=== PATIENT | male | born 1945 | race Caucasian/White ===

== ENCOUNTER → 2016-11-25 | Outpatient (CLI) | payer OTHER ==
[~2016-11-25] MED LIST: AMLODIPINE BESY10 MG PO; ARTHROTEC 751 TABLET PO; ASPIRIN81 M2 PO; BRILINTA90 MG PO; CRESTOR20 MG PO; DAILY MULTIPLE1 EACH PO; DULCOLAX5 MG PO; FENOFIBRATE160 M1 PO; FUROSEMIDE20 MG PO; HYDROCODON-ACE1 EAC7 PO; IRON325 M1 PO; LISINOPRIL-HCT1 EAC3 PO; LISINOPRIL2.5 MG PO; LITE COAT ASPI325 M1 PO; LO-DOSE ASPIRIN81 M1 PO; LOPRESSOR25 MG PO; LOPRESSOR50 MG PO; METOPROLOL TART50 MG PO; OXYCODONE-ACET1 EACH PO; SENNA-TIME S T1 EACH PO; SPIRONOLACTONE25 MG PO; TYLENOL EXTRA500 MG PO; WELCHOL3.75 GM PO
== END | disposition home or self-care (01) ==
DX: M17.12 Unilateral primary osteoarthritis, left knee (principal); R26.2 Difficulty in walking, not elsewhere classified; M25.562 Pain in left knee; M25.662 Stiffness of left knee, not elsewhere classified; M62.81 Muscle weakness (generalized)
CPT/HCPCS: 97110 GP; 97150 GO; 97161 GP; 97165 GO; G8978 GP; G8979 GP; G8980 GP; G8987 GO; G8988 GO; G8989 GO

== ENCOUNTER 2016-12-22 22:05 | Inpatient (IN) | payer OTHER ==
[~2016-12-22] VITALS: Ht 182.9 cm; Wt 97.5 kg
[~2016-12-22 22:05] MED LIST changes: +CO Q-10100 MG PO; +PRINIVIL10 MG PO
[2016-12-23 06:12] VITALS: BP 153/72
[2016-12-23 10:14] LABS: HEMATOCRIT 40.6 % (38.0-50.0); MCH 29.5 PG (29.0-34.0); MCV 92.1 FL (86-99); MEAN PLAT.VOLUME 9.7 uM^3 (9.0-12.4); PLATELET COUNT 161 K/uL (156-360); RBC DIS.WIDTH-CV 12.4 % (11.8-14.6); RBC DIS.WIDTH-SD 42.5 % (39-53); RED BLOOD COUNT 4.41 M/uL (4.00-5.50); WHITE BLOOD COUNT 6.7 K/uL (4.1-10.2)
[2016-12-23 11:45] VITALS: BP 138/72
[2016-12-23 16:30] VITALS: BP 145/71
[2016-12-23 20:07] VITALS: BP 141/70
[2016-12-23 23:51] VITALS: BP 156/78
[2016-12-24 03:55] VITALS: BP 161/92
[2016-12-24 07:25] LABS: HEMATOCRIT 39.2 % (38.0-50.0)
[2016-12-24 07:51] LABS: ANION GAP 7 MEQ/L (2-14); CHLORIDE 101 MEQ/L (99-109); GFR ESTIMATE (CALCULATED) > 59 mL/min/; GLUCOSE 128 mg/dL (70-99); POTASSIUM 3.8 MEQ/L (3.7-5.4); SAMPLE HEMOLYSIS CHECK 0; SAMPLE ICTERIC CHECK 0; SAMPLE LIPEMIA CHECK 0; SODIUM 137 MEQ/L (136-147); UREA NITROGEN (BUN) 13 mg/dL (9-23)
[2016-12-24 08:20] VITALS: BP 141/59
[2016-12-24 15:55] VITALS: BP 119/56
[2016-12-24 23:44] VITALS: BP 115/63
[2016-12-25 06:48] LABS: HEMATOCRIT 36.3 % (38.0-50.0); MCV 90.8 FL (86-99)
[2016-12-25 07:58] VITALS: BP 119/69
[2016-12-25] MEDS ORDERED: LOVENOX40 MG/0.4 SC (08:45)
[2016-12-25] MEDS ORDERED: DOCUSATE SODIU100 MG PO (08:45)
[2016-12-25] MEDS ORDERED: ENDOCET 5-3251 EACH PO (08:45)
== END 2016-12-25 15:21 | DRG 470 ==
LOC: ENRESERV 22:05 → 2SOUTH 12-23 05:21 → ENRESERV 12-23 10:22 → 3EAST 12-23 11:37 → 2SOUTH 12-23 13:19 → 3EAST 12-25 15:21
PROVIDERS: Orthopaedic Surgery
PROC: 0SRD0J9 Replacement of Left Knee Joint with Synthetic Substitute, Cemented, Open Approach (ICD-10-PCS; principal; 2016-12-23)
DX: M17.12 Unilateral primary osteoarthritis, left knee (principal); M21.169 Varus deformity, not elsewhere classified, unspecified knee; I10 Essential (primary) hypertension; I25.10 Atherosclerotic heart disease of native coronary artery without angina pectoris; E78.5 Hyperlipidemia, unspecified; Z96.651 Presence of right artificial knee joint; Z96.611 Presence of right artificial shoulder joint; Z87.891 Personal history of nicotine dependence; I25.2 Old myocardial infarction; Z95.5 Presence of coronary angioplasty implant and graft; Z79.82 Long term (current) use of aspirin
CPT/HCPCS: 73560; 80048; 85014; 85018; 85027; 94799; 97530 GP; C1713; J0690; J1170; J1650; J2250; J2405; J3010; J7050

== ENCOUNTER 2016-12-28 11:33 | Emergency (ER) | payer OTHER ==
[~2016-12-28] VITALS: Ht 182.9 cm; Wt 90.1 kg
[~2016-12-28 11:33] MED LIST changes: +DOCUSATE SODIU100 MG PO; +ENDOCET 5-3251 EACH PO; +LOVENOX40 MG/0.4 SC
[2016-12-28 12:56] LABS: EOSINOPHIL (%) 0.1 % (0-5); HEMATOCRIT 35.7 % (38.0-50.0); IMMATURE GRANULOCYTE (%) 0.8 % (0.0-0.7); IMMATURE GRANULOCYTE COUNT 0.1 K/uL; INSTRUMENT ABS NEUTROPHIL CT 11.9 K/uL; LYMPHOCYTE COUNT 0.5 K/uL (1.0-2.8); MCH 29.8 PG (29.0-34.0); MCHC 33.3 G/DL (30.0-36.0); MCV 89.3 FL (86-99); MEAN PLAT.VOLUME 9.5 uM^3 (9.0-12.4); MONOCYTE (%) 9.7 % (3-12); MONOCYTE COUNT 1.3 K/uL (0-0.8); NEUTROPHIL (%) 85.6 % (45-76); NEUTROPHIL COUNT 11.9 K/uL (1.8-6.4); RBC DIS.WIDTH-CV 12.2 % (11.8-14.6); RBC DIS.WIDTH-SD 40.3 % (39-53); WHITE BLOOD COUNT 13.8 K/uL (4.1-10.2)
[2016-12-28 13:01] LABS: PLATELET COUNT 252 K/uL (156-360)
[2016-12-28 13:04] LABS: CHLORIDE 101 mEq/L (99-109); SODIUM 140 mEq/L (136-147)
[2016-12-28 13:05] LABS: GLUCOSE 103 mg/dL (70-99)
[2016-12-28 13:07] LABS: ANION GAP 10 MEQ/L (2-14)
[2016-12-28 13:09] LABS: GFR ESTIMATE (CALCULATED) > 59 mL/min/
[2016-12-28 13:10] LABS: UREA NITROGEN (BUN) 20 mg/dL (9-23)
[2016-12-28 14:59] VITALS: BP 131/70
[2016-12-28] MEDS ORDERED: KEFLEX500 MG PO (15:10)
== END 2016-12-28 15:19 | disposition home or self-care (01) ==
LOC: EME 11:33
DX: M96.840 Postprocedural hematoma of a musculoskeletal structure following a musculoskeletal system procedure (principal); Z96.652 Presence of left artificial knee joint; Z98.890 Other specified postprocedural states; I10 Essential (primary) hypertension; Z96.611 Presence of right artificial shoulder joint; Z95.5 Presence of coronary angioplasty implant and graft; Z87.891 Personal history of nicotine dependence
CPT/HCPCS: 80048; 83605; 85025; 93971; 99281; 99284

== ENCOUNTER 2016-12-29 15:39 | Emergency (ER) | payer OTHER ==
[~2016-12-29] VITALS: Ht 182.9 cm; Wt 91.1 kg
[~2016-12-29 15:39] MED LIST changes: +KEFLEX500 MG PO
[2016-12-29 17:05] VITALS: BP 143/91
== END 2016-12-29 17:05 | disposition home or self-care (01) ==
LOC: EME 15:39
DX: Z48.01 Encounter for change or removal of surgical wound dressing (principal); L76.32 Postprocedural hematoma of skin and subcutaneous tissue following other procedure; Z96.652 Presence of left artificial knee joint; Z98.890 Other specified postprocedural states; E78.00 Pure hypercholesterolemia, unspecified; Z95.5 Presence of coronary angioplasty implant and graft; Z87.891 Personal history of nicotine dependence
CPT/HCPCS: 99281; 99284

== ENCOUNTER 2017-09-27 10:13 | Emergency (ER) | payer OTHER ==
[~2017-09-27] VITALS: Ht 182.9 cm; Wt 88.9 kg
[2017-09-27] MEDS ORDERED: VALIUM5 MG PO (12:44)
[2017-09-27] MEDS ORDERED: NAPROSYN500 MG PO (12:44)
[2017-09-27] MEDS ORDERED: MEDROL DOSEPAK4 MG PO (12:54)
[2017-09-27 13:00] VITALS: BP 141/88
== END 2017-09-27 13:01 | disposition home or self-care (01) ==
LOC: EME 10:13
DX: S39.012A Strain of muscle, fascia and tendon of lower back, initial encounter (principal); M62.838 Other muscle spasm; G89.29 Other chronic pain; I10 Essential (primary) hypertension; I25.2 Old myocardial infarction; Z87.442 Personal history of urinary calculi; Z87.891 Personal history of nicotine dependence; M43.16 Spondylolisthesis, lumbar region; M48.061 Spinal stenosis, lumbar region without neurogenic claudication
CPT/HCPCS: 72131; 99281; 99283

== ENCOUNTER 2017-10-06 18:16 | Observation (INO) | payer OTHER ==
[~2017-10-06] VITALS: Ht 182.9 cm; Wt 87.7 kg
[~2017-10-06 18:16] MED LIST changes: +MEDROL DOSEPAK4 MG PO; +NAPROSYN500 MG PO; +VALIUM5 MG PO
[2017-10-06 19:25] LABS: HEMATOCRIT 47.7 % (38.0-50.0); MCH 30.5 PG (29.0-34.0); MCHC 33.5 G/DL (30.0-36.0); PLATELET COUNT 262 K/uL (156-360); RBC DIS.WIDTH-CV 12.6 % (11.8-14.6); RBC DIS.WIDTH-SD 41.8 % (39-53); RED BLOOD COUNT 5.24 M/uL (4.00-5.50); WHITE BLOOD COUNT 11.6 K/uL (4.1-10.2)
[2017-10-06 19:39] LABS: CHLORIDE 104 mEq/L (99-109); POTASSIUM 4.1 mEq/L (3.7-5.4); SODIUM 145 mEq/L (136-147)
[2017-10-06 19:41] LABS: GLUCOSE 96 mg/dL (70-99); TOTAL PROTEIN 6.7 g/dL (6.4-8.3)
[2017-10-06 19:43] LABS: TOTAL BILIRUBIN 0.9 mg/dL (0.0-1.0)
[2017-10-06 19:45] LABS: ALKALINE PHOSPHATASE 96 IU/L (3-129); GFR ESTIMATE (CALCULATED) > 59 mL/min/ (58.99-99999)
[2017-10-06 19:46] LABS: UREA NITROGEN (BUN) 20 mg/dL (9-23)
[2017-10-06 19:47] LABS: AST (GOT) 20 IU/L (2-34)
[2017-10-06 19:48] LABS: ALT (GPT) 49 IU/L (3-49)
[2017-10-06 19:49] LABS: TROP-I INTERPRETATION NEGATIVE; TROPONIN-I 0.02 ng/mL (0.0-0.30)
[2017-10-06] MEDS ORDERED: LO-DOSE ASPIRIN81 M2 PO (20:24)
[2017-10-06] MEDS ORDERED: ONE DAILY MULT1 EACH PO (20:24)
[2017-10-06 23:17] VITALS: BP 158/70
[2017-10-07 01:21] LABS: TROP-I INTERPRETATION NEGATIVE; TROPONIN-I 0.23 ng/mL (0.0-0.30)
[2017-10-07 01:49] LABS: HDL CHOLESTEROL 32 MG/DL (Desirable>=40); LDL CHOLESTEROL 50 mg/dL (Desirable<100); NON-HDL CHOLESTEROL 65 mg/dL (Desirable<160); TOTAL CHOLESTEROL 97 mg/dL (Desirable<200); TRIGLYCERIDES 75 MG/DL (Normal: <150)
[2017-10-07 04:11] VITALS: BP 128/73
[2017-10-07 07:00] LABS: TROP-I INTERPRETATION INDETERMINATE; TROPONIN-I 0.39 ng/mL (0.0-0.30)
[2017-10-07 07:15] VITALS: BP 143/89
[2017-10-07 11:43] VITALS: BP 140/81
[2017-10-07 12:50] LABS: INTER. NORMALIZED RATIO 1.2
[2017-10-07 12:53] LABS: PTT 33.2 SEC (25-37)
[2017-10-07 20:45] VITALS: BP 134/85
[2017-10-08 00:11] VITALS: BP 128/76
[2017-10-08 04:02] VITALS: BP 135/73
[2017-10-08 06:53] VITALS: BP 156/86
[2017-10-08 08:44] LABS: HEMATOCRIT 47.6 % (38.0-50.0); HEMOGLOBIN 15.5 G/DL (12.5-16.6); MCH 29.9 PG (29.0-34.0); MCHC 32.6 G/DL (30.0-36.0); MCV 91.9 FL (86-99); PLATELET COUNT 198 K/uL (156-360); RBC DIS.WIDTH-CV 12.9 % (11.8-14.6); RBC DIS.WIDTH-SD 43.6 % (39-53); RED BLOOD COUNT 5.18 M/uL (4.00-5.50); WHITE BLOOD COUNT 9.1 K/uL (4.1-10.2)
[2017-10-08 09:03] LABS: TROP-I INTERPRETATION NEGATIVE
[2017-10-08 09:04] LABS: CHLORIDE 104 MEQ/L (99-109); CREATININE 0.7 MG/DL (0.6-1.3); GFR ESTIMATE (CALCULATED) > 59 mL/min/ (58.99-99999); GLUCOSE 86 mg/dL (70-99); POTASSIUM 4.5 MEQ/L (3.7-5.4); SODIUM 140 MEQ/L (136-147); UREA NITROGEN (BUN) 15 mg/dL (9-23)
[2017-10-08 11:05] VITALS: BP 129/79
[2017-10-08] MEDS ORDERED: LISINOPRIL20 MG PO (11:05)
[2017-10-08] MEDS ORDERED: LISINOPRIL10 MG PO (11:07)
== END 2017-10-08 13:28 | disposition home or self-care (01) ==
LOC: EME 18:16 → 4SOUTH 20:57 → EDOF 20:57 → ENRESERV 21:01 → 4SOUTH 23:09
PROVIDERS: Internal Medicine Cardiovascular Disease; Nurse Practitioner Adult Health; Physician Assistant Medical
DX: I25.110 Atherosclerotic heart disease of native coronary artery with unstable angina pectoris (principal); Z95.5 Presence of coronary angioplasty implant and graft; I25.2 Old myocardial infarction; I25.5 Ischemic cardiomyopathy; Z86.74 Personal history of sudden cardiac arrest; I11.0 Hypertensive heart disease with heart failure; I50.22 Chronic systolic (congestive) heart failure; E78.2 Mixed hyperlipidemia; I47.2 Ventricular tachycardia; I27.20 Pulmonary hypertension, unspecified; I34.0 Nonrheumatic mitral (valve) insufficiency; Z85.828 Personal history of other malignant neoplasm of skin; M48.00 Spinal stenosis, site unspecified; G89.29 Other chronic pain; D72.829 Elevated white blood cell count, unspecified; T38.0X5A Adverse effect of glucocorticoids and synthetic analogues, initial encounter; Z87.442 Personal history of urinary calculi; Z96.653 Presence of artificial knee joint, bilateral; Z96.619 Presence of unspecified artificial shoulder joint; Z87.891 Personal history of nicotine dependence; Z82.49 Family history of ischemic heart disease and other diseases of the circulatory system; Z79.82 Long term (current) use of aspirin; Z88.8 Allergy status to other drugs, medicaments and biological substances
CPT/HCPCS: 71046; 80048; 80053; 80061; 84484; 85027; 85610; 85730; 93005; C1750; C1769; C1887; G0378; J1644; J2250; J3010

== ENCOUNTER → 2017-12-08 | Day surgery (SDC) | payer OTHER ==
[~2017-12-08] MED LIST changes: +LISINOPRIL10 MG PO; +LISINOPRIL20 MG PO; +LO-DOSE ASPIRIN81 M2 PO; +ONE DAILY MULT1 EACH PO
== END | disposition home or self-care (01) ==
LOC: NUC 12:53
PROC: C22YYZZ Tomographic (Tomo) Nuclear Medicine Imaging of Heart using Other Radionuclide (ICD-10-PCS; principal; 2017-12-08)
DX: I42.9 Cardiomyopathy, unspecified (principal); I10 Essential (primary) hypertension; I25.2 Old myocardial infarction; Z95.5 Presence of coronary angioplasty implant and graft; Z87.891 Personal history of nicotine dependence; Z82.49 Family history of ischemic heart disease and other diseases of the circulatory system
CPT/HCPCS: 78472; A9512; A9560